=== PATIENT | female | born 1950 | race Caucasian/White ===

== ENCOUNTER 2021-03-25 06:52 | Emergency (ER) | payer BC, OTHER ==
[2021-03-25 06:58] VITALS: BP 137/82; PULSE 88; TEMP 99.5; BMI 24.4
[2021-03-25] MEDS ORDERED: DOXYCYCLINE HYCLATE 100 MG CAPSULE PO ONE (07:03)
[2021-03-25] MEDS ORDERED: IBUPROFEN 600 MG TABLET (FP) PO ONE ×2 (07:04→07:07)
[2021-03-25] MEDS ORDERED: DOXYCYCLINE HYCLATE 100 MG TABLET PO ONE (07:07)
[2021-03-27 09:07] LABS: SARS-CoV-2 NAA Not Detected (Not Detected)
== END 2021-03-25 07:26 | disposition home or self-care (01) ==
LOC: FER 06:52
DX: S80.861A Insect bite (nonvenomous), right lower leg, initial encounter (principal); A69.20 Lyme disease, unspecified
CPT/HCPCS: 36415; 86618; 99283-25; C9803; U0003; U0005